=== PATIENT | female | born 1975 | race Caucasian/White ===

== ENCOUNTER 2022-01-25 09:51 | Emergency (ER) | payer OTHER ==
[2022-01-25 10:06] VITALS: BP 138/78; PULSE 59; TEMP 98.3; BMI 26.2
[2022-01-25] MEDS ORDERED: DIPHTH,PERTUSS(ACELL),TET 0.5 ML DISP.SYRIN IM ONE ×2 (11:14→11:35)
== END 2022-01-25 12:20 | disposition home or self-care (01) ==
LOC: JERFT 09:51
PROC: 0HQGXZZ Repair Left Hand Skin, External Approach (ICD-10-PCS; principal; 2022-01-25)
PROC: 3E0234Z Introduction of Serum, Toxoid and Vaccine into Muscle, Percutaneous Approach (ICD-10-PCS; 2022-01-25)
DX: S61.210A Laceration without foreign body of right index finger without damage to nail, initial encounter (principal); S61.211A Laceration without foreign body of left index finger without damage to nail, initial encounter; W26.8XXA Contact with other sharp object(s), not elsewhere classified, initial encounter
CPT/HCPCS: 12001-25; 73130-TC-LT-FY; 90471; 90715; 99283-25

== ENCOUNTER 2022-02-01 10:04 | Emergency (ER) | payer OTHER ==
[2022-02-01 10:11] VITALS: BP 93/59; PULSE 65; TEMP 97.7; BMI 25.8
== END 2022-02-01 11:14 | disposition home or self-care (01) ==
LOC: JERFT 10:04
DX: Z48.02 Encounter for removal of sutures (principal)
CPT/HCPCS: 99281-25

== ENCOUNTER 2024-03-01 15:25 | Emergency (ER) | payer OTHER ==
[2024-03-01 15:54] VITALS: BP 108/63; PULSE 62; RESP 18; TEMP 98.2; BMI 29.2
[2024-03-01 17:35] LABS: BASO % 0.4 % (0-2.0); EOS % 0.8 % (0-4.5); HEMATOCRIT 34.5 % (32.4-45.2); HEMOGLOBIN 11.6 GM/dL (10.7-15.3); LYMPH % 29.9 % (8-40); MCH 29.6 pg (25.7-33.7); MCHC 33.6 g/dl (32.0-36.0); MEAN CELL VOLUME 88.3 fl (80-96); MEAN PLT VOLUME 7.8 fl (7.5-11.1); MONO % 5.6 % (3.8-10.2); NEUT % 63.3 % (42.8-82.8); PLATELET COUNT 347 10^3/uL (134-434); RDW 14.5 % (11.6-15.6); WHITE BLOOD COUNT 9.4 K/mm3 (4.0-10.0)
[2024-03-01 17:47] LABS: POTASSIUM 4.4 mmol/L (3.5-5.1)
[2024-03-01 17:49] LABS: CALCIUM 9.5 mg/dL (8.5-10.1)
[2024-03-01 17:50] LABS: ALBUMIN 4.1 g/dl (3.4-5.0); BLOOD UREA NITROGEN 19.6 mg/dL (7-18)
[2024-03-01 17:50] LABS: EPI CELLS 11 /uL (0-25.1); HYALINE CASTS 1 /uL (0-3.1); URINE APPEARANCE CLOUDY; URINE BACTERIA 39 /uL (0-1359); URINE BILIRUBIN NEGATIVE (NEGATIVE); URINE COLOR YELLOW; URINE GLUCOSE (UA) NEGATIVE (NEGATIVE); URINE KETONE NEGATIVE (NEGATIVE); URINE LEUK ESTERASE 1+ (NEGATIVE); URINE NITRITE NEGATIVE (NEGATIVE); URINE PROTEIN NEGATIVE (NEGATIVE); URINE RBC 33 /uL (0-23.9); URINE WBC 257 /uL (0-25.8)
[2024-03-01 17:54] LABS: BILIRUBIN,TOTAL 0.3 mg/dL (0.2-1)
[2024-03-01 17:55] LABS: TOT PROT 7.6 g/dl (6.4-8.2)
== END 2024-03-01 21:12 | disposition admitted as inpatient to this hospital (09) ==
LOC: JER 15:25
DX: N39.0 Urinary tract infection, site not specified (principal); R10.13 Epigastric pain; R14.0 Abdominal distension (gaseous); R11.10 Vomiting, unspecified
CPT/HCPCS: 36415; 74177-TC; 80053; 81003; 83690; 84703; 85025; 87086; 99285-25; Q9967